=== PATIENT | male | born 1960 | race African-American/Black ===

== ENCOUNTER 2017-07-09 08:05 | Emergency (ER) | payer OTHER ==
[2017-07-09] MEDS: LIDOCAINE HCL 1% PF 30 ML VIAL INFIL (09:03)
== END 2017-07-09 09:06 | disposition home or self-care (01) ==
LOC: NEPD 08:05
DX: S90.851A Superficial foreign body, right foot, initial encounter (principal); F17.210 Nicotine dependence, cigarettes, uncomplicated; F12.90 Cannabis use, unspecified, uncomplicated; X58.XXXA Exposure to other specified factors, initial encounter; Y93.9 Activity, unspecified
CPT/HCPCS: 28190; 99283-25

== ENCOUNTER 2017-08-28 07:11 | Emergency (ER) | payer OTHER ==
[~2017-08-28] VITALS: Ht 165.1 cm; Wt 70.0 kg
[~2017-08-28 07:11] MED LIST: BACT800T5 PO; IBUP1TAB7 PO
[2017-08-28 07:16] VITALS: BP 134/75; PULSE 74; RESP 16; TEMP 98.1; O2SAT 98
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
[2017-08-28] MEDS ORDERED: KETOROLAC TROMETHAMINE 60 MG/2 ML (IM) VIAL IM ONE (07:45)
[2017-08-28] MEDS ORDERED: ORPHENADRINE INJ 60 MG/2 ML AMP IM ONE (07:45)
[2017-08-28] MEDS ORDERED: IBUP1TAB7 PO (08:01)
[2017-08-28] MEDS ORDERED: CYCL10TA PO (08:01)
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
== END 2017-08-28 09:59 | disposition home or self-care (01) ==
LOC: NEPD 07:11
DX: S16.1XXA Strain of muscle, fascia and tendon at neck level, initial encounter (principal); M12.88 Other specific arthropathies, not elsewhere classified, other specified site; M47.892 Other spondylosis, cervical region; F17.210 Nicotine dependence, cigarettes, uncomplicated; V49.60XA Unspecified car occupant injured in collision with unspecified motor vehicles in traffic accident, initial encounter
CPT/HCPCS: 72125; 96372; 99283; J1885; J2360